=== PATIENT | female | born 1995 | race Caucasian/White ===

== ENCOUNTER 2017-12-04 19:31 | Emergency (ER) | payer OTHER ==
[2017-12-04] MEDS ORDERED: Lidocaine 2% Viscous Solution 15 ML Cup PO ONE (20:02)
--- NOTE | 2017-12-04 20:09 | EDM.PDOC ---
ED HPI GENERAL MEDICAL PROBLEM - General Chief Complaint: Respiratory Problem Stated Complaint: SORE THROAT Time Seen by Provider: 12/04/17 19:56 - History of Present Illness INITIAL COMMENTS - FREE TEXT/NARRATIVE: HISTORY AND PHYSICAL: History of present illness: The patient is a 22-year-old female who is healthy and presents with a four-day history of sore throat and difficulty swallowing but able to take by mouth as well as a dry cough and today she started having laryngitis. The patient has a history of seasonal allergies and takes Zyrtec on a regular basis and had a colectomy. She says that she feels achy all over her upper chest and her neck area but doesn't specifically have a headache or runny nose. She's had no discrete fevers vomiting or diarrhea and denies . Patient follows in our family practice clinic but has not connected with them for care. Again the patient says that it is painful to swallow and speak but she is able to do both. Review of systems: As per history of present illness and below otherwise all systems reviewed and negative. Past medical history: As per history of present illness and as reviewed below otherwise noncontributory. Surgical history: As per history of present illness and as reviewed below otherwise noncontributory. Social history: No reported history of drug or alcohol abuse. Family history: As per history of present illness and as reviewed below otherwise noncontributory. Physical exam: General: Well-developed well-nourished female was slightly worse voice or my evaluation but she is not muffled nor she breathless and vital signs are noted by me. HEENT: Atraumatic, normocephalic, pupils reactive, negative for conjunctival pallor or scleral icterus, mucous membranes moist, throat clear of exudates but there is some minimal posterior oropharyngeal erythema right greater than left, uvula is midline, there is no discrete cervical adenopathy or nuchal rigidity, neck supple, nontender, trachea midline. Lungs: Clear to auscultation, breath sounds equal bilaterally, chest nontender. No wheezing or stridor or work of breathing Heart: S1S2, regular, negative for clicks, rubs, or JVD. Abdomen: Soft, nondistended, nontender. Negative for masses or hepatosplenomegaly. NABS Pelvis: Deferred Genitourinary: Deferred. Rectal: Deferred. Extremities: Atraumatic, negative for cords or calf pain. Neurovascular unremarkable. Neuro: Awake, alert, oriented. Cranial nerves II through XII unremarkable. Cerebellum unremarkable. Motor and sensory unremarkable throughout. Exam nonfocal. Diagnostics: Rapid strep soft tissue neck Therapeutics: visc lidocaine She feels significantly improved men after the lidocaine. I will write her a prescription for this. She is aware of all testing results and need for follow- up Impression: Odontophagia, laryngitis, history of seasonal allergies Definitive disposition and diagnosis as appropriate pending reevaluation and review of above. throat Pain Score (Numeric/FACES): 8 - Related Data Allergies Allergy/AdvReac Type Severity Reaction Status Date / Time No Known Allergies Allergy Verified 12/04/17 19:56 Home Meds: Home Meds Venlafaxine [Effexor] 37.5 mg PO BEDTIME 11/20/13 [History] Norethindrone-Ethinyl Estrad [Nortrel] 1 tab PO DAILY 11/21/13 [History] Past Medical History HEENT History: Reports: None Cardiovascular History: Reports: None Respiratory History: Reports: None Gastrointestinal History: Reports: None Genitourinary History: Reports: None [employer] History: Reports: None Musculoskeletal History: Reports: None Neurological History: Reports: None Psychiatric History: Reports: None Endocrine/Metabolic History: Reports: None Hematologic History: Reports: None Immunologic History: Reports: None Oncologic (Cancer) History: Reports: None Dermatologic History: Reports: None - Infectious Disease History Infectious Disease History: Reports: None - Past Surgical History Head Surgeries/Procedures: Reports: None HEENT Surgical History: Reports: Tonsillectomy GI Surgical History: Reports: Appendectomy Musculoskeletal Surgical History: Reports: Other (See Below) Other Musculoskeletal Surgeries/Procedures:: knee surgery Social & Family History - Family History Family Medical History: Noncontributory - Tobacco Use Smoking Status *Q: Never Smoker - Caffeine Use Caffeine Use: Reports: Coffee - Recreational Drug Use Recreational Drug Use: No ED ROS GENERAL - Review of Systems Review Of Systems: ROS reveals no pertinent complaints other than HPI. ED EXAM, GENERAL - Physical Exam Exam: See Below (see dictation) Course - Vital Signs Last Recorded V/S: Last Vital Signs Temp 36.8 C 12/04/17 19:56 Pulse 74 12/04/17 19:56 Resp 18 12/04/17 19:56 BP 125/79 12/04/17 19:56 Pulse Ox 98 12/04/17 19:56 - Orders/Labs/Meds Orders: Active Orders 24 hr Category Date Time Status Neck Soft Tissue [CR] Stat Exams 12/04/17 20:02 Taken CULTURE STREP A CONFIRMATION [RM] Stat Lab 12/04/17 20:05 Results STREP SCRN A RAPID W CULT CONF [RM] Stat Lab 12/04/17 20:05 Ordered Meds: Medications Discontinued Medications Generic Name Dose Route Start Last Admin Trade Name David PRN Reason Stop Dose Admin Lidocaine HCl 15 ml 12/04/17 20:02 12/04/17 20:55 Xylocaine 2% Viscous PO 12/04/17 20:03 15 ml ONETIME ONE Administration Departure - Departure Time of Disposition: 21:03 Disposition: Home, Self-Care 01 Condition: Good Clinical Impression: Pain on swallowing, Laryngitis - Discharge Information Referrals: Ashkan Magana MD [Primary Care Provider] - Forms: ED Department Discharge Additional Instructions: The following information is given to patients seen in the emergency department who are being discharged to home. This information is to outline your options for follow-up care. We provide all patients seen in our emergency department with a follow-up referral. The need for follow-up, as well as the timing and circumstances, are variable depending upon the specifics of your emergency department visit. If you don't have a primary care physician on staff, we will provide you with a referral. We always advise you to contact your personal physician following an emergency department visit to inform them of the circumstance of the visit and for follow-up with them and/or the need for any referrals to a consulting specialist. The emergency department will also refer you to a specialist when appropriate. This referral assures that you have the opportunity for followup care with a specialist. All of these measure are taken in an effort to provide you with optimal care, which includes your followup. Under all circumstances we always encourage you to contact your private physician who remains a resource for coordinating your care. When calling for followup care, please make the office aware that this follow-up is from your recent emergency room visit. If for any reason you are refused follow-up, please contact the [facility] emergency department at and ask to speak to the emergency department charge nurse. [facility] Primary care- [place] [address] Push hydration and use your prescription for Viscous Lidocaine as you need. Please continue with her allergy meds and add [id number] allergy meds as needed. Please follow-up with your provider in the clinic and return to ER as needed and as discussed - My Orders Last 24 Hours: My Active Orders 12/04/17 20:02 Neck Soft Tissue [CR] Stat 12/04/17 20:05 CULTURE STREP A CONFIRMATION [RM] Stat STREP SCRN A RAPID W CULT CONF [RM] Stat - Assessment/Plan Last 24 Hours: My Active Orders 12/04/17 20:02 Neck Soft Tissue [CR] Stat 12/04/17 20:05 CULTURE STREP A CONFIRMATION [RM] Stat STREP SCRN A RAPID W CULT CONF [RM] Stat
--- NOTE | 2017-12-06 19:16 | CR ---
EXAM DATE: 12/04/17 PATIENT'S AGE: 22 Patient: JESUS ALBERTO ROBISON Facility: [place], [place] Site . Site : 1994 Study: XRay ST Neck [id number] 8:26:01 PM Ordering Physician: Camron Barroso Final Report: INDICATION: Cough, Sore Throat, Neck Pain for 4 Days TECHNIQUE: Neck soft tissue radiograph 2 views COMPARISON: None FINDINGS: Soft tissue: The retropharyngeal soft tissues are unremarkable. The epiglottis and airway are normal in appearance. No radiopaque foreign bodies are seen. 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 Bones: No acute fractures or aggressive bone lesions are identified. Alignment is normal. Discs: The disc spaces are unremarkable in appearance. The facet joints are unremarkable. IMPRESSION: 1. 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 Dictated by Gustavo Taylor MD @ 12/04/2017 8:29:16 PM Dictated by: Gustavo Taylor MD @ 12/04/2017 20:29:20 (Electronic Signature) MTDD
== END 2017-12-04 21:12 | disposition home or self-care (01) ==
LOC: MW.ED 19:31
DX: J04.0 Acute laryngitis (principal); Z79.899 Other long term (current) drug therapy
CPT/HCPCS: 70360; 87081; 87880; 99283; A9270

== ENCOUNTER 2020-12-24 21:21 | Day surgery (SDC) | payer OTHER ==
--- NOTE | 2020-12-24 21:42 | PCM.EKG ---
#1 Interpretation EKG Date: 12/24/20 Time: 21:41 EKG Interpretation Comments: Sinus rhythm rate of 68 normal axis and intervals no acute ischemia
[2020-12-24] MEDS ORDERED: Sodium Chloride 0.9% 10 ML Syringe FLUSH PRN (21:50)
[2020-12-24] MEDS ORDERED: Sodium Chloride 0.9% 2.5 ML Syringe FLUSH PRN (21:50)
[2020-12-24] MEDS ORDERED: Sodium Chloride 0.9% 1,000 ML IV ONE (21:52)
--- NOTE | 2020-12-24 21:58 | EDM.PDOC ---
ED HPI GENERAL MEDICAL PROBLEM <Pro Leon - Last Filed: 12/25/20 01:55> - General Source of Information: Reports: Patient, Family () History Limitations: Reports: No Limitations Abdomen Pain Score (Numeric/FACES): 4 <Gale Martinez - Last Filed: 12/25/20 21:54> - General Chief Complaint: Syncope Stated Complaint: PASSED OUT Time Seen by Provider: 12/24/20 21:23 - History of Present Illness INITIAL COMMENTS - FREE TEXT/NARRATIVE: HISTORY AND PHYSICAL: History of present illness: The patient is a 25-year-old female that is 5 and half weeks who complains to the emergency department after several syncopal episodes. The patient states that she has been constipated and her SERVICE TECHNICIAN has been having her take Metamucil on a daily basis. The patient stated that earlier this evening she started having sharp pain in her right lower quad and in her bilateral lower back. The patient states the pain was so severe that she was nauseated. The patient states that she laid down for about 2-1/2 hours but upon arising felt like she was going to pass out. Patient states as she was walking she did pass out and was able to get herself back up into the bathroom. At 1 point she stated she passed out and was incontinent of stool and urine. She states her was outside and did not hear her yell. She states her nausea is much better but she still is very sore in the right lower quad. Her reports that when he saw her she was very diaphoretic and "out of it" Patient denies any fever, chills, headache, change in vision. Denies any chest pain, shortness of breath or cough. Denies any diarrhea or dysuria. Has not noted any blood in urine or stool. Patient has been eating and drinking appropriately. Review of systems: As per history of present illness and below otherwise all systems reviewed and negative. Past medical history: As per history of present illness and as reviewed below otherwise noncontributory. Surgical history: As per history of present illness and as reviewed below otherwise noncontributory. Social history: See social history for further information Family history: As per history of present illness and as reviewed below otherwise noncontributory. Physical exam: General: Well developed and well nourished. Alert and orientated x 3. Nontoxic in appearance and in no acute distress. Vital signs are stable and have been reviewed by me. Nursing notes were reviewed. HEENT: Atraumatic, normocephalic, pupils equal and reactive bilaterally, negative for conjunctival pallor or scleral icterus, mucous membranes moist, TMs normal bilaterally, throat clear, neck supple, nontender, trachea midline. No drooling or trismus noted. No meningeal signs. No hot potato voice noted. Lungs: Clear to auscultation bilaterally. No wheezes, rales, or rhonchi. Chest nontender. Normal work of breathing, no accessory muscles used. Heart: S1S2, regular rate and rhythm without overt murmur, gallops, or rubs. No JVD. No peripheral edema Abdomen: Soft, nondistended. RLQ tender. Normoactive bowel sounds. Negative for masses or costovertebral tenderness. Back: Lower double back operator. Skin: Intact, warm, dry. No lesions or rashes noted. Hematologic: No petechiae or purpra. Mucosa appropriate color and normal nail bed color and refill. Extremities: Atraumatic, moves all extremities per self without difficulty or deficits, negative for cords or calf pain. Neurovascular unremarkable. Neuro: Awake, alert, oriented. Cranial nerves II through XII unremarkable. Cerebellum unremarkable. Motor and sensory unremarkable throughout. Exam nonfocal. Psychiatric: Mood and affect are appropriate. Normal thought process. Answering questions appropriately. Notes: *This patient was seen and evaluated during the 2019 SARS-CoV-2 novel coronavirus pandemic period. Community viral transmission is ongoing at time of this encounter and the emergency department is operating under pandemic response procedures. As stated above the patient is 7-1/2 weeks presenting to the emergency room after several syncopal episodes. The patient's neuro status was intact. After examination the patient is very tender in the right lower quad. The patient is agreeable with the plan of lab work, urinalysis, EKG, ultrasound, and IV fluids. Report given to Dr. Barahona, who will take over care of the patient. Diagnostics: CBC, CMP, hCG quantitative, EKG, UA, ultrasound Therapeutics: IV fluids Definitive disposition and diagnosis as appropriate pending reevaluation and review of above. (Gale Martinez) - Related Data Allergies Allergy/AdvReac Type Severity Reaction Status Date / Time No Known Allergies Allergy Verified 12/25/20 01:31 Home Meds: Home Meds Docusate Sodium [Colace] 100 mg PO BID PRN #60 cap 12/25/20 [Rx] Ibuprofen 800 mg PO Q8H PRN #40 tablet 12/25/20 [Rx] No122/Iron/Folic Acid [ Multi Tablet] 1 tab PO DAILY 12/25/20 [History] Progesterone, Micronized [Progesterone] 200 mg PO DAILY 12/25/20 [History] Sertraline [Zoloft] 50 mg PO DAILY 12/25/20 [History] oxyCODONE HCl/Acetaminophen [Percocet 5-325 mg Tablet] 1 each PO Q4HR PRN #15 tablet 12/25/20 [Rx] Past Medical History HEENT History: Reports: None Cardiovascular History: Reports: None Respiratory History: Reports: None Gastrointestinal History: Reports: None Genitourinary History: Reports: None SERVICE TECHNICIAN History: Reports: None Musculoskeletal History: Reports: None Neurological History: Reports: None Psychiatric History: Reports: None Endocrine/Metabolic History: Reports: None Hematologic History: Reports: None Immunologic History: Reports: None Oncologic (Cancer) History: Reports: None Dermatologic History: Reports: None - Infectious Disease History Infectious Disease History: Reports: None - Past Surgical History Head Surgeries/Procedures: Reports: None HEENT Surgical History: Reports: Tonsillectomy GI Surgical History: Reports: Appendectomy Musculoskeletal Surgical History: Reports: Other (See Below) Other Musculoskeletal Surgeries/Procedures:: knee surgery <Gale Martinez - Last Filed: 12/25/20 21:54> Social & Family History - Family History Family Medical History: No Pertinent Family History - Caffeine Use Caffeine Use: Reports: Coffee <Gale Martinez - Last Filed: 12/25/20 21:54> ED ROS GENERAL - Review of Systems Review Of Systems: See Below <Pro Leon - Last Filed: 12/25/20 01:55> - Review of Systems Review Of Systems: Comprehensive ROS is negative, except as noted in HPI. <Gale Martinez - Last Filed: 12/25/20 21:54> - Physical Exam Exam: See Below <Pro Leon - Last Filed: 12/25/20 01:55> - Physical Exam Exam: See Below (See dictation) <Gale Martinez - Last Filed: 12/25/20 21:54> Course - Vital Signs Last Recorded V/S: Last Vital Signs Temp 97.0 F 12/25/20 08:00 Pulse 64 12/25/20 08:00 Resp 16 12/25/20 08:00 BP 108/54 L 12/25/20 08:00 Pulse Ox 96 12/25/20 08:00 - Orders/Labs/Meds Orders: Active Orders 24 hr Category Date Time Status Patient Status [ADT] Routine ADT 12/25/20 01:27 Active Patient Status [ADT] Routine ADT 12/25/20 03:53 Active Peripheral IV Discontinue [OM.PC] Routine Ot 12/25/20 03:59 Ordered Peripheral IV Insertion Adult [OM.PC] Urgent Ot 12/25/20 01:27 Ordered Saline Lock Insert [OM.PC] Stat Ot 12/24/20 21:50 Ordered Sequential Compression Device [OM.PC] Per Unit Routine Ot 12/25/20 01:27 Ordered Resuscitation Status Routine Resus Stat 12/25/20 03:52 Ordered Labs: Laboratory Tests 12/24/20 12/24/20 12/24/20 Range/Units 21:37 21:37 21:37 WBC 13.18 H (4.0-11.0) K/uL RBC 3.95 L (4.30-5.90) M/uL Hgb 12.1 (12.0-16.0) g/dL Hct 35.4 L (36.0-46.0) % MCV 89.6 (80.0-98.0) fL MCH 30.6 (27.0-32.0) pg MCHC 34.2 (31.0-37.0) g/dL RDW Std Deviation 39.5 (28.0-62.0) fl RDW Coeff of Anna 12 (11.0-15.0) % Plt Count 258 (150-400) K/uL MPV 9.20 (7.40-12.00) fL Neut % (Auto) 80.5 H (48.0-80.0) % Lymph % (Auto) 13.5 L (16.0-40.0) % [place] % (Auto) 3.2 (0.0-15.0) % Eos % (Auto) 2.6 (0.0-7.0) % Baso % (Auto) 0.2 (0.0-1.5) % Neut # (Auto) 10.6 H (1.4-5.7) K/uL Lymph # (Auto) 1.8 (0.6-2.4) K/uL [place] # (Auto) 0.4 (0.0-0.8) K/uL Eos # (Auto) 0.3 (0.0-0.7) K/uL Baso # (Auto) 0.0 (0.0-0.1) K/uL Nucleated RBC % 0.0 /100WBC Nucleated RBCs # 0 K/uL Sodium 136 (136-145) mmol/L Potassium 3.5 (3.5-5.1) mmol/L Chloride 101 (98-107) mmol/L Carbon Dioxide 25.4 (21.0-32.0) mmol/L BUN 13 (7.0-18.0) mg/dL Creatinine 0.8 (0.6-1.0) mg/dL Est Cr Clr Drug Dosing TNP Estimated GFR (MDRD) > 60.0 ml/min Glucose 140 H (74-106) mg/dL Calcium 8.4 L (8.5-10.1) mg/dL Total Bilirubin 0.4 (0.2-1.0) mg/dL AST 16 (15-37) IU/L ALT 25 (14-63) IU/L Alkaline Phosphatase 58 (46-116) U/L Total Protein 6.7 (6.4-8.2) g/dL Albumin 3.0 L (3.4-5.0) g/dL Globulin 3.7 (2.6-4.0) g/dL Albumin/Globulin Ratio 0.8 L (0.9-1.6) HCG, Quant 14201.0 mIU/mL Urine Color Urine Appearance Urine pH (5.0-8.0) Ur Specific [place] (1.001-1.035) Urine Protein (NEGATIVE) mg/dL Urine Glucose (UA) (NEGATIVE) mg/dL Urine Ketones (NEGATIVE) mg/dL Urine Occult Blood (NEGATIVE) Urine Nitrite (NEGATIVE) Urine Bilirubin (NEGATIVE) Urine Urobilinogen (<2.0) EU/dL Ur Leukocyte Esterase (NEGATIVE) SARS-CoV-2 RNA (MIGUEL) (NEGATIVE) Blood Type Antibody Screen Screen RhIG Candidate? Rhogam Indicated 12/25/20 12/25/20 12/25/20 Range/Units 00:11 01:00 01:00 WBC (4.0-11.0) K/uL RBC (4.30-5.90) M/uL Hgb (12.0-16.0) g/dL Hct (36.0-46.0) % MCV (80.0-98.0) fL MCH (27.0-32.0) pg MCHC (31.0-37.0) g/dL RDW Std Deviation (28.0-62.0) fl RDW Coeff of Anna (11.0-15.0) % Plt Count (150-400) K/uL MPV (7.40-12.00) fL Neut % (Auto) (48.0-80.0) % Lymph % (Auto) (16.0-40.0) % [place] % (Auto) (0.0-15.0) % Eos % (Auto) (0.0-7.0) % Baso % (Auto) (0.0-1.5) % Neut # (Auto) (1.4-5.7) K/uL Lymph # (Auto) (0.6-2.4) K/uL [place] # (Auto) (0.0-0.8) K/uL Eos # (Auto) (0.0-0.7) K/uL Baso # (Auto) (0.0-0.1) K/uL Nucleated RBC % /100WBC Nucleated RBCs # K/uL Sodium (136-145) mmol/L Potassium (3.5-5.1) mmol/L Chloride (98-107) mmol/L Carbon Dioxide (21.0-32.0) mmol/L BUN (7.0-18.0) mg/dL Creatinine (0.6-1.0) mg/dL Est Cr Clr Drug Dosing Estimated GFR (MDRD) ml/min Glucose (74-106) mg/dL Calcium (8.5-10.1) mg/dL Total Bilirubin (0.2-1.0) mg/dL AST (15-37) IU/L ALT (14-63) IU/L Alkaline Phosphatase (46-116) U/L Total Protein (6.4-8.2) g/dL Albumin (3.4-5.0) g/dL Globulin (2.6-4.0) g/dL Albumin/Globulin Ratio (0.9-1.6) HCG, Quant mIU/mL Urine Color YELLOW Urine Appearance CLEAR Urine pH 6.0 (5.0-8.0) Ur Specific [place] <= 1.005 (1.001-1.035) Urine Protein NEGATIVE (NEGATIVE) mg/dL Urine Glucose (UA) NEGATIVE (NEGATIVE) mg/dL Urine Ketones NEGATIVE (NEGATIVE) mg/dL Urine Occult Blood NEGATIVE (NEGATIVE) Urine Nitrite NEGATIVE (NEGATIVE) Urine Bilirubin NEGATIVE (NEGATIVE) Urine Urobilinogen 0.2 (<2.0) EU/dL Ur Leukocyte Esterase NEGATIVE (NEGATIVE) SARS-CoV-2 RNA (MIGUEL) NEGATIVE (NEGATIVE) Blood Type A NEGATIVE Antibody Screen NEGATIVE Screen RhIG Candidate? Rhogam Indicated 12/25/20 Range/Units 04:11 WBC (4.0-11.0) K/uL RBC (4.30-5.90) M/uL Hgb (12.0-16.0) g/dL Hct (36.0-46.0) % MCV (80.0-98.0) fL MCH (27.0-32.0) pg MCHC (31.0-37.0) g/dL RDW Std Deviation (28.0-62.0) fl RDW Coeff of Anna (11.0-15.0) % Plt Count (150-400) K/uL MPV (7.40-12.00) fL Neut % (Auto) (48.0-80.0) % Lymph % (Auto) (16.0-40.0) % [place] % (Auto) (0.0-15.0) % Eos % (Auto) (0.0-7.0) % Baso % (Auto) (0.0-1.5) % Neut # (Auto) (1.4-5.7) K/uL Lymph # (Auto) (0.6-2.4) K/uL [place] # (Auto) (0.0-0.8) K/uL Eos # (Auto) (0.0-0.7) K/uL Baso # (Auto) (0.0-0.1) K/uL Nucleated RBC % /100WBC Nucleated RBCs # K/uL Sodium (136-145) mmol/L Potassium (3.5-5.1) mmol/L Chloride (98-107) mmol/L Carbon Dioxide (21.0-32.0) mmol/L BUN (7.0-18.0) mg/dL Creatinine (0.6-1.0) mg/dL Est Cr Clr Drug Dosing Estimated GFR (MDRD) ml/min Glucose (74-106) mg/dL Calcium (8.5-10.1) mg/dL Total Bilirubin (0.2-1.0) mg/dL AST (15-37) IU/L ALT (14-63) IU/L Alkaline Phosphatase (46-116) U/L Total Protein (6.4-8.2) g/dL Albumin (3.4-5.0) g/dL Globulin (2.6-4.0) g/dL Albumin/Globulin Ratio (0.9-1.6) HCG, Quant mIU/mL Urine Color Urine Appearance Urine pH (5.0-8.0) Ur Specific [place] (1.001-1.035) Urine Protein (NEGATIVE) mg/dL Urine Glucose (UA) (NEGATIVE) mg/dL Urine Ketones (NEGATIVE) mg/dL Urine Occult Blood (NEGATIVE) Urine Nitrite (NEGATIVE) Urine Bilirubin (NEGATIVE) Urine Urobilinogen (<2.0) EU/dL Ur Leukocyte Esterase (NEGATIVE) SARS-CoV-2 RNA (MIGUEL) (NEGATIVE) Blood Type Antibody Screen Screen WHOLESALE AND RETAIL MERCHANT RhIG Candidate? YES Rhogam Indicated YES, BABY RH UNKNOWN H Meds: Medications Discontinued Medications Generic Name Dose Route Start Last Admin Trade Name Freq PRN Reason Stop Dose Admin Acetaminophen 1,000 mg 12/25/20 08:40 12/25/20 08:58 Acetaminophen 500 Mg Tab PO 12/25/20 08:41 1,000 mg ONETIME ONE Administration Acetaminophen Confirm 12/25/20 08:46 12/25/20 08:59 Acetaminophen 500 Mg Tab Administered 12/25/20 08:47 Not Given Dose 1,000 mg .ROUTE .STK-MED ONE Bupivacaine HCl Confirm 12/25/20 04:20 Bupivacaine 0.25% 10 Ml Sdv Administered 12/25/20 04:21 Dose 10 ml .ROUTE .STK-MED ONE Desflurane Confirm 12/25/20 03:51 Desflurane 240 Ml Bottle Administered 12/25/20 03:52 Dose 720 ml .ROUTE .STK-MED ONE Dexamethasone Confirm 12/25/20 02:13 Dexamethasone 4 Mg/Ml 5 Ml Mdv Administered 12/25/20 02:14 Dose 20 mg .ROUTE .STK-MED ONE Fentanyl Confirm 12/25/20 02:11 Fentanyl 100 Mcg/2 Ml Sdv Administered 12/25/20 02:12 Dose 100 mcg .ROUTE .STK-MED ONE Glycopyrrolate Confirm 12/25/20 02:13 Glycopyrrolate 0.2 Mg/Ml Sdv Administered 12/25/20 02:14 Dose 0.2 mg .ROUTE .STK-MED ONE Sodium Chloride 1,000 mls @ 999 mls/hr 12/24/20 21:52 12/24/20 22:15 Normal Saline IV 12/24/20 22:52 999 mls/hr .BOLUS ONE Administration Acetaminophen Confirm 12/25/20 02:13 Ofirmev 1000 Mg/100 Ml Administered 12/25/20 02:14 Dose 100 mls @ as directed .ROUTE .STK-MED ONE Ketorolac Tromethamine 15 mg 12/25/20 03:59 12/25/20 05:09 Ketorolac 15 Mg/Ml Sdv IVPUSH 12/25/20 04:00 Not Given ONETIME ONE Lidocaine HCl Confirm 12/25/20 03:39 Lidocaine 1% 5 Ml Sdv Administered 12/25/20 03:40 Dose 5 ml .ROUTE .STK-MED ONE Midazolam HCl Confirm 12/25/20 02:11 Midazolam 1 Mg/Ml 2 Ml Sdv Administered 12/25/20 02:12 Dose 2 mg .ROUTE .STK-MED ONE Morphine Sulfate Confirm 12/25/20 03:00 Morphine 10 Mg/Ml Syringe Administered 12/25/20 03:01 Dose 10 mg .ROUTE .STK-MED ONE Ondansetron HCl Confirm 12/25/20 02:11 Ondansetron 4 Mg/2 Ml Sdv Administered 12/25/20 02:12 Dose 4 mg .ROUTE .STK-MED ONE Oxycodone/Acetaminophen 2 tab 12/25/20 04:21 Acetaminophen/Oxycodone 325-5 Mg Tab PO Q4H PRN Pain (severe 7-10) Propofol Confirm 12/25/20 02:11 Propofol 200 Mg/20 Ml Sdv Administered 12/25/20 02:12 Dose 400 mg .ROUTE .STK-MED ONE Propofol Confirm 12/25/20 02:55 Propofol 200 Mg/20 Ml Sdv Administered 12/25/20 02:56 Dose 200 mg .ROUTE .STK-MED ONE Rocuronium [place] Confirm 12/25/20 02:13 Rocuronium [place] 50 Mg/5 Ml Syringe Administered 12/25/20 02:14 Dose 50 mg .ROUTE .STK-MED ONE Sodium Chloride 10 ml 12/24/20 21:50 Sodium Chloride 0.9% 10 Ml Syringe FLUSH ASDIRECTED PRN Keep Vein Open Sodium Chloride 2.5 ml 12/24/20 21:50 Sodium Chloride 0.9% 2.5 Ml Syringe FLUSH ASDIRECTED PRN Keep Vein Open Sodium Chloride 10 ml 12/25/20 01:27 Sodium Chloride 0.9% 10 Ml Syringe FLUSH ASDIRECTED PRN Keep Vein Open Sodium Chloride 2.5 ml 12/25/20 01:27 Sodium Chloride 0.9% 2.5 Ml Syringe FLUSH ASDIRECTED PRN Keep Vein Open Sodium Chloride 10 ml 12/25/20 01:27 Sodium Chloride 0.9% 10 Ml Sdv IV ASDIRECTED PRN IV Use Sugammadex Sodium Confirm 12/25/20 03:32 Sugammadex Sodium 200 Mg/2 Ml Vial Administered 12/25/20 03:33 Dose 200 mg .ROUTE .STK-MED ONE Departure - Departure Time of Disposition: 01:55 Condition: Good <Pro Leon - Last Filed: 12/25/20 01:55> <Gale Martinez - Last Filed: 12/25/20 21:54> - Departure Disposition: Refer to Observation Clinical Impression: Ruptured ectopic <Pro Leon - Last Filed: 12/25/20 01:55> - My Orders Last 24 Hours: My Active Orders 12/24/20 21:50 Saline Lock Insert [OM.PC] Stat - Assessment/Plan Last 24 Hours: My Active Orders 12/24/20 21:50 Saline Lock Insert [OM.PC] Stat Assessment:: Pt received in signout from the prior provider pending US result. Pt discussed with radiology and US demonstrates a right adnexal mass with free fluid in the pelvis concerning for a ruptured ectopic . Pt discussed with Dr. Wu immediately after I spoke to radiology. She will come assess the patient. COVID swab ordered, 2nd IV to be established and type and screen ordered. 0155: Pt has been seen by Dr. Wu in the ED. Pt remains HDS. Will be taken to the OR. (Pro Leon)
[2020-12-24 22:08] LABS: BLOOD UREA NITROGEN,BUN 13 mg/dL (7.0-18.0); CARBON DIOXIDE,CO2 25.4 mmol/L (21.0-32.0); CHLORIDE,CL 101 mmol/L (98-107); GLUCOSE RANDOM 140 mg/dL (74-106); POTASSIUM,K 3.5 mmol/L (3.5-5.1); SODIUM,NA 136 mmol/L (136-145)
--- NOTE | 2020-12-25 00:51 | US ---
For Patients: As a result of the Century Cures Act, medical imaging exams and procedure reports are released immediately into your electronic medical record. You may view this report before your referring provider. If you have questions, please contact your health care provider. Indication: Right lower quadrant pain, LMP 11/03, beta HCG 42174 Technique: Multiple grayscale and Doppler sonographic images of the pelvis. Scanning was performed transvaginally. Comparison: None Findings/Impression: 1. There is a 5.8 x 4.9 x 8.4 cm heterogeneous right adnexal mass. The right ovary is inseparable from the adjacent mass. There is moderate pelvic free fluid. Findings are highly concerning for ruptured ectopic . 2. The left ovary measures 2.4 x 3.1 x 3.6 cm and contains a 1.6 cm thick-walled cystic structure with peripheral vascularity suggestive of a corpus luteum. 3. The uterus measures 9.9 x 4.2 x 5.1 cm. There is thickening and heterogeneity of the endometrial stripe, measuring up to 1.7 cm in thickness. No intrauterine gestational sac is appreciated. Dictated by Eveline Verdugo MD @ 12/25/2020 12:49:[address] Eveline Verdugo @ Dec 25 2020 12:49AM
[2020-12-25] MEDS ORDERED: Sodium Chloride 0.9% 10 ML Syringe FLUSH PRN (01:27)
[2020-12-25] MEDS ORDERED: Sodium Chloride 0.9% 10 ML SDV IV PRN (01:27)
[2020-12-25] MEDS ORDERED: Sodium Chloride 0.9% 2.5 ML Syringe FLUSH PRN (01:27)
--- NOTE | 2020-12-25 02:05 | PCM.PREANE ---
Preanesthetic Assessment - Procedure Proposed Procedure: Laparoscopy-ectopic - Anesthesia/Transfusion/Family Hx Anesthesia History: Prior Anesthesia Without Reaction Other Type of Anesthesia Reaction Comment: Denies any known problem with anesthesia in the past, reports"fito white Family History of Anesthesia Reaction: No Transfusion History: No Prior Transfusion(s) Intubation History: Unknown - Review of Systems General: No Symptoms Pulmonary: No Symptoms Cardiovascular: Other (Passed out at home.) Gastrointestinal: Other (Has IBS sysptoms at times.) Neurological: No Symptoms Other: Reports: Anxiety - Physical Assessment NPO Status Date: 12/24/20 NPO Status Time: 18:00 Vital Signs: Last Vital Signs Temp 36.1 C 12/24/20 23:56 Pulse 75 12/25/20 01:53 Resp 20 12/25/20 01:53 BP 108/65 12/25/20 01:53 Pulse Ox 100 12/25/20 01:53 ASA Class: 2E Mental Status: Alert & Oriented x3 Airway Class: Mallampati = 2 Dentition: Reports: Normal Dentition Thyro-Mental Finger Breadths: 3 Mouth Opening Finger Breadths: 3 ROM/Head Extension: Full Lungs: Clear to Auscultation Cardiovascular: Regular Rate - Lab Values: Laboratory Last Values WBC 13.18 K/uL (4.0-11.0) H 12/24/20 21:37 RBC 3.95 M/uL (4.30-5.90) L 12/24/20 21:37 Hgb 12.1 g/dL (12.0-16.0) 12/24/20 21:37 Hct 35.4 % (36.0-46.0) L 12/24/20 21:37 MCV 89.6 fL (80.0-98.0) 12/24/20 21:37 MCH 30.6 pg (27.0-32.0) 12/24/20 21:37 MCHC 34.2 g/dL (31.0-37.0) 12/24/20 21:37 RDW Std Deviation 39.5 fl (28.0-62.0) 12/24/20 21:37 RDW Coeff of Anna 12 % (11.0-15.0) 12/24/20 21:37 Plt Count 258 K/uL (150-400) 12/24/20 21:37 MPV 9.20 fL (7.40-12.00) 12/24/20 21:37 Neut % (Auto) 80.5 % (48.0-80.0) H 12/24/20 21:37 Lymph % (Auto) 13.5 % (16.0-40.0) L 12/24/20 21:37 [place] % (Auto) 3.2 % (0.0-15.0) 12/24/20 21:37 Eos % (Auto) 2.6 % (0.0-7.0) 12/24/20 21:37 Baso % (Auto) 0.2 % (0.0-1.5) 12/24/20 21:37 Neut # (Auto) 10.6 K/uL (1.4-5.7) H 12/24/20 21:37 Lymph # (Auto) 1.8 K/uL (0.6-2.4) 12/24/20 21:37 [place]ima # (Auto) 0.4 K/uL (0.0-0.8) 12/24/20 21:37 Eos # (Auto) 0.3 K/uL (0.0-0.7) 12/24/20 21:37 Baso # (Auto) 0.0 K/uL (0.0-0.1) 12/24/20 21:37 Nucleated RBC % 0.0 /100WBC 12/24/20 21:37 Nucleated RBCs # 0 K/uL 12/24/20 21:37 Sodium 136 mmol/L (136-145) 12/24/20 21:37 Potassium 3.5 mmol/L (3.5-5.1) 12/24/20 21:37 Chloride 101 mmol/L (98-107) 12/24/20 21:37 Carbon Dioxide 25.4 mmol/L (21.0-32.0) 12/24/20 21:37 BUN 13 mg/dL (7.0-18.0) 12/24/20 21:37 Creatinine 0.8 mg/dL (0.6-1.0) 12/24/20 21:37 Est Cr Clr Drug Dosing TNP 12/24/20 21:37 Estimated GFR (MDRD) > 60.0 ml/min 12/24/20 21:37 Glucose 140 mg/dL (74-106) H 12/24/20 21:37 Calcium 8.4 mg/dL (8.5-10.1) L 12/24/20 21:37 Total Bilirubin 0.4 mg/dL (0.2-1.0) 12/24/20 21:37 AST 16 IU/L (15-37) 12/24/20 21:37 ALT 25 IU/L (14-63) 12/24/20 21:37 Alkaline Phosphatase 58 U/L (46-116) 12/24/20 21:37 Total Protein 6.7 g/dL (6.4-8.2) 12/24/20 21:37 Albumin 3.0 g/dL (3.4-5.0) L 12/24/20 21:37 Globulin 3.7 g/dL (2.6-4.0) 12/24/20 21:37 Albumin/Globulin Ratio 0.8 (0.9-1.6) L 12/24/20 21:37 HCG, Quant 17611.0 mIU/mL 12/24/20 21:37 Urine Color YELLOW 12/25/20 00:11 Urine Appearance CLEAR 12/25/20 00:11 Urine pH 6.0 (5.0-8.0) 12/25/20 00:11 Ur Specific Sperry <= 1.005 (1.001-1.035) 12/25/20 00:11 Urine Protein NEGATIVE mg/dL (NEGATIVE) 12/25/20 00:11 Urine Glucose (UA) NEGATIVE mg/dL (NEGATIVE) 12/25/20 00:11 Urine Ketones NEGATIVE mg/dL (NEGATIVE) 12/25/20 00:11 Urine Occult Blood NEGATIVE (NEGATIVE) 12/25/20 00:11 Urine Nitrite NEGATIVE (NEGATIVE) 12/25/20 00:11 Urine Bilirubin NEGATIVE (NEGATIVE) 12/25/20 00:11 Urine Urobilinogen 0.2 EU/dL (<2.0) 12/25/20 00:11 Ur Leukocyte Esterase NEGATIVE (NEGATIVE) 12/25/20 00:11 SARS-CoV-2 RNA (MIGUEL) NEGATIVE (NEGATIVE) 12/25/20 01:00 Blood Type A NEGATIVE 12/25/20 01:00 Antibody Screen NEGATIVE 12/25/20 01:00 - Allergies Allergies/Adverse Reactions: Allergies Allergy/AdvReac Type Severity Reaction Status Date / Time No Known Allergies Allergy Verified 12/25/20 01:31 - Blood Blood Available: No Product(s) Available: None - Anesthesia Plan Pre-Op Medication Ordered: None - Acknowledgements Anesthesia Type Planned: General Anesthesia Pt an Appropriate Candidate for the Planned Anesthesia: Yes Alternatives and Risks of Anesthesia Discussed w Pt/Guardian: Yes Pt/Guardian Understands and Agrees with Anesthesia Plan: Yes Additional Comments: Discussed. Permit signed. ? Answered. Acceptable candidate. PreAnesthesia Questionnaire HEENT History: Reports: None Cardiovascular History: Reports: None Respiratory History: Reports: None Gastrointestinal History: Reports: None Genitourinary History: Reports: None SPACE OPERATIONS History: Reports: None Musculoskeletal History: Reports: None Neurological History: Reports: None Psychiatric History: Reports: None Endocrine/Metabolic History: Reports: None Hematologic History: Reports: None Immunologic History: Reports: None Oncologic (Cancer) History: Reports: None Dermatologic History: Reports: None - Infectious Disease History Infectious Disease History: Reports: None - Past Surgical History Head Surgeries/Procedures: Reports: None HEENT Surgical History: Reports: Tonsillectomy GI Surgical History: Reports: Appendectomy Musculoskeletal Surgical History: Reports: Other (See Below) Other Musculoskeletal Surgeries/Procedures:: knee surgery - SUBSTANCE USE Tobacco Use Status *Q: Never Tobacco User Recreational Drug Use History: No - HOME MEDS Home Medications: Home Meds No122/Iron/Folic Acid [ Multi Tablet] 1 tab PO DAILY 12/25/20 [History] Progesterone, Micronized [Progesterone] 200 mg PO DAILY 12/25/20 [History] Sertraline [Zoloft] 50 mg PO DAILY 12/25/20 [History] - CURRENT (IN HOUSE) MEDS Current Meds: Current Medications Sodium Chloride (Sodium Chloride 0.9% 10 Ml Syringe) 10 ml FLUSH ASDIRECTED PRN PRN Reason: Keep Vein Open Sodium Chloride (Sodium Chloride 0.9% 2.5 Ml Syringe) 2.5 ml FLUSH ASDIRECTED PRN PRN Reason: Keep Vein Open Sodium Chloride (Sodium Chloride 0.9% 10 Ml Sdv) 10 ml IV ASDIRECTED PRN PRN Reason: IV Use Discontinued Medications Sodium Chloride (Normal Saline) 1,000 mls @ 999 mls/hr IV .BOLUS ONE Stop: 12/24/20 22:52 Last Admin: 12/24/20 22:15 Dose: 999 mls/hr Documented by: Sodium Chloride (Sodium Chloride 0.9% 10 Ml Syringe) 10 ml FLUSH ASDIRECTED PRN PRN Reason: Keep Vein Open Sodium Chloride (Sodium Chloride 0.9% 2.5 Ml Syringe) 2.5 ml FLUSH ASDIRECTED PRN PRN Reason: Keep Vein Open
[2020-12-25] MEDS ORDERED: fentaNYL 100 MCG/2 ML SDV ONE (02:11)
[2020-12-25] MEDS ORDERED: Propofol 200 MG/20 ML SDV ONE ×2 (02:11→02:55)
[2020-12-25] MEDS ORDERED: Ondansetron 4 MG/2 ML SDV ONE (02:11)
[2020-12-25] MEDS ORDERED: Midazolam 1 MG/ML 2 ML SDV ONE (02:11)
[2020-12-25] MEDS ORDERED: Rocuronium Bromide 50 MG/5 ML Syringe ONE (02:13)
[2020-12-25] MEDS ORDERED: Dexamethasone 4 MG/ML 5 ML MDV ONE (02:13)
[2020-12-25] MEDS ORDERED: Glycopyrrolate 0.2 MG/ML SDV ONE (02:13)
[2020-12-25] MEDS ORDERED: Morphine 10 MG/ML Syringe ONE (03:00)
[2020-12-25] MEDS ORDERED: Sugammadex Sodium 200 MG/2 ML VIAL ONE (03:32)
[2020-12-25] MEDS ORDERED: Desflurane 240 ML Bottle ONE (03:51)
[2020-12-25] MEDS ORDERED: Ketorolac 15 MG/ML SDV IVPUSH ONE (03:59)
--- NOTE | 2020-12-25 04:05 | PCM.POSTAN ---
POST ANESTHESIA ASSESSMENT - MENTAL STATUS Mental Status: Alert, Oriented - VITAL SIGNS Vital Signs: Last Vital Signs Temp 36.1 C 12/24/20 23:56 Pulse 75 12/25/20 01:53 Resp 20 12/25/20 01:53 BP 108/65 12/25/20 01:53 Pulse Ox 100 12/25/20 01:53 - RESPIRATORY Respiratory Status: Respiratory Rate WNL, Airway Patent, O2 Saturation Stable - CARDIOVASCULAR CV Status: Pulse Rate WNL, Blood Pressure Stable - GASTROINTESTINAL GI Status: No Symptoms - PAIN Pain Score: 1 (some soreness, doing well.) - POST OP HYDRATION Hydration Status: Adequate & Stable - OBSERVATIONS Free Text/Narrative:: Doing well, minimal discomfort, no nausea. Adequate for transfer to floor.
--- NOTE | 2020-12-25 04:07 | PCM.OPNOTE ---
- General Post-Op/Procedure Note Date of Surgery/Procedure: 12/25/20 Operative Procedure(s): Diagnostic laparoscopy, evacuation of hemoperitoneum, right salpingectomy Findings: Moderate amount of blood in pelvis. Right fallopian tube dilated along entire length with ectopic protruding through fimbriated end. Normal ovaries, uterus, left fallopian tube Pre Op Diagnosis: 25yo @ 7w3d by LMP. Suspected ruptured ectopic Post-Op Diagnosis: Same Anesthesia Technique: General ET Tube Primary Surgeon: Michaelle Wu Pathology: Right fallopian tube with ectopic Fluid Replacement, Intraop: 1,800 Output, Urine Amount: 400 Complications: None Condition: Stable Free Text/Narrative:: Intake & Output 12/24/20 12/24/20 12/25/20 14:59 22:59 06:59 Output Total 30 Balance -30
[2020-12-25] MEDS ORDERED: Bupivacaine 0.25% 10 ML SDV ONE (04:20)
[2020-12-25] MEDS ORDERED: Acetaminophen/oxyCODONE 325-5 MG Tab PO PRN (04:21)
--- NOTE | 2020-12-25 04:47 | OR ---
SURGEON: Michaelle Wu MD DATE OF PROCEDURE: 12/25/2020 PREOPERATIVE DIAGNOSES: 1. 25-year-old, G1, P0, at 7 weeks and 3 days gestation by last menstrual period. 2. Suspected ruptured ectopic . POSTOPERATIVE DIAGNOSES: 1. 25-year-old, G1, P0, at 7 weeks and 3 days gestation by last menstrual period. 2. Ruptured ectopic . PROCEDURE: Diagnostic laparoscopy, evacuation of hemoperitoneum, and right salpingectomy. PRIMARY SURGEON: Michaelle Wu MD ANESTHESIA: General endotracheal. ESTIMATED BLOOD LOSS: 100 mL. IV FLUIDS: 1800 mL. URINE OUTPUT: Bladder drained prior to procedure. FINDINGS: Anteverted uterus sounded to 10 cm. Moderate amount of hemoperitoneum. Right fallopian tube dilated with ectopic extruding through the fimbriated end, but encompassing the majority of the length of the tube. Normal-appearing left fallopian tube, uterus, and ovary. INDICATIONS: This is a 25-year-old, G1, P0, who presented to the emergency department at 7 weeks and 3 days gestation by last menstrual period with complaints of a syncopal episode. She had been undergoing ovulation induction and had an intrauterine insemination on November 14. The was confirmed. The patient stated that she began having right lower quadrant pain and had a syncopal episode due to the pain and therefore proceeded to the emergency department. Upon presentation, her vital signs were found to be stable with a normal hemoglobin, however, pelvic ultrasound was concerning for ruptured ectopic . The diagnosis was discussed with the patient and the recommendation to proceed with diagnostic laparoscopy, removal of ectopic with possible removal of a fallopian tube and ovary were reviewed with the patient along with the risks, benefits, and alternatives. She voiced understanding of this and agreed to proceed with surgery. DESCRIPTION OF PROCEDURE: The patient was taken to the operating room where general anesthesia was obtained without difficulty. She was placed in dorsal lithotomy position with Yellofin stirrups. She was prepared and draped in normal sterile fashion. A Graves speculum was inserted into the vagina. The anterior lip of the cervix was grasped with an Allis clamp. Uterus sounded to 10 cm. The cervix was sequentially dilated with Hegar dilators to a size 6. The HUMI uterine manipulator was placed. The Allis clamp and speculum were removed. Surgeon's gloves were changed. The infraumbilical fold was infiltrated with 0.25% bupivacaine without epinephrine. A 5 mm incision was made with a scalpel. The abdomen was entered under direct visualization with a 5 mm trocar. Pneumoperitoneum was obtained to a pressure of 15 mmHg. A survey of the pelvis revealed the above finding. A 5 mm port was placed in the right lower quadrant under direct visualization after infiltration with 0.25% bupivacaine. The suction supervisor type disk quality control was used to evacuate the majority of the hemoperitoneum. The left fallopian tube and ovary were noted to be intact. The right fallopian tube was dilated along the majority of the flank forming ectopic with contents protruding from the fimbriated end. At this point, the decision was made to proceed with right salpingectomy. Third port was placed in the left lower quadrant under direct laparoscopic visualization. A 5 mm LigaSure device was used to clamp, coagulate, and transect along the length of the mesosalpinx the fallopian tube from the ovary and uterus. The right lower quadrant 5 mm port was removed and the incision extended to accommodate a 12 mm port. The 12 mm laparoscopic catch bag was introduced. The fallopian tube with ectopic was placed in the catch bag and was removed through the 12 mm port without difficulty. A 12 mm port was reintroduced. The remainder of the hemoperitoneum was evacuated. The right adnexa was inspected and noted to be hemostatic. The 12 mm port was removed and the fascia closed with a suture of 0 Vicryl using the Gabino- Paige. The pneumoperitoneum was released and all instruments were removed from the abdomen. The skin was closed with subcutaneous stitches of 4-0 Monocryl. Incisions were covered with bandages. The Rafa uterine manipulator was removed from the uterus and a sponge stick was used to confirm that there was minimal bleeding. The patient was awakened and taken to recovery room in stable condition. All sponge, lap, and needle counts were correct x2. [id number] / MODL /[id number]
--- NOTE | 2020-12-25 07:05 | PCM48HPAN ---
Post Anesthesia Note - EVALUATION WITHIN 48HRS OF ANESTHETIC Vital Signs in Normal Range: Yes Patient Participated in Evaluation: Yes Respiratory Function Stable: Yes Airway Patent: Yes Cardiovascular Function Stable: Yes Hydration Status Stable: Yes Pain Control Satisfactory: Yes Nausea and Vomiting Control Satisfactory: Yes Mental Status Recovered: Yes Vital Signs: Last Vital Signs Temp 36.2 C 12/25/20 03:46 Pulse 65 12/25/20 04:11 Resp 14 12/25/20 04:11 BP 97/58 L 12/25/20 04:11 Pulse Ox 98 12/25/20 04:11
--- NOTE | 2020-12-25 07:08 | HP ---
DATE OF : 1995 PRIMARY CARE PHYSICIAN: Ashkan Magana M.D. CHIEF COMPLAINT: Syncopal episode. HISTORY OF PRESENT ILLNESS: This is a 25-year-old, G1, P0, at roughly seven weeks by LMP after ovulation induction and intrauterine insemination, who presented with syncopal episode. Earlier this evening, she began experiencing sharp right lower quadrant pain with subsequent nausea and syncope, who presented to the ER due to this pain and syncopal episode. PAST MEDICAL HISTORY: Anxiety. PAST SURGICAL HISTORY: Tonsillectomy, appendectomy, and knee surgery. FAMILY HISTORY: Positive for diabetes and hypertension. SOCIAL HISTORY: Denies tobacco, alcohol, and drug use. PAST GYNECOLOGIC HISTORY: Pap in 2019, LSIL. Denies history of STIs. PAST OBSTETRIC HISTORY: She is currently a G1. She underwent intrauterine insemination on November 14. REVIEW OF SYSTEMS: Negative except as in HPI. ALLERGIES: No known drug allergies. MEDICATIONS: Sertraline 50 mg daily. PHYSICAL EXAMINATION: VITAL SIGNS: Blood pressure 115/79, heart rate 75, respiratory rate 20, SpO2 98%, and temperature 36.1. GENERAL: No apparent distress. CARDIOVASCULAR: Regular rate and rhythm. LUNGS: Clear to auscultation bilaterally. ABDOMEN: Soft. Mildly distended. Nontender to palpation without rebound or guarding. EXTREMITIES: No edema. Nontender to palpation. PELVIC: Deferred. DIAGNOSTIC DATA: Ultrasound: Right adnexal mass along with a moderate amount of pelvic fluid concerning for ruptured ectopic . There is no intrauterine gestational sac identified. Labs: Hemoglobin 12.1, hematocrit 35.4, and platelets 258. CMP normal. HCG 17,029. ASSESSMENT AND PLAN: This is a 25-year-old, 1, para 0, at roughly 7 weeks' gestation by last menstrual period after ovulation induction and intrauterine insemination with a suspected ruptured ectopic . The treatment of ruptured ectopic is removal of the and evacuation of bleeding. It may be the best time to undergo diagnostic laparoscopy with removal of ectopic and possible salpingectomy and/or oophorectomy. Suspect is in the right fallopian tube. However, until surgery we cannot definitively confirm. It is possible that she has the ectopic on the left side and this will require removal of the left fallopian tube. This will not adversely affect future fertility if one fallopian tube is removed. I discussed that intrauterine insemination does increase risk the risk of having an ectopic . We reviewed risks of the surgery including, but not limited to, infection; bleeding with need for transfusion; injury to surrounding organs, vessels, and nerves; anesthesia complications; and . She voiced understanding of the above and agrees to proceed with a diagnostic laparoscopy with removal of ectopic and likely salpingectomy. All questions were answered. [id number] / MODL /[id number]
[2020-12-25] MEDS ORDERED: Acetaminophen 500 MG Tab PO ONE (08:40)
[2020-12-25] MEDS ORDERED: Acetaminophen 500 MG Tab ONE (08:46)
== END 2020-12-25 10:00 | disposition home or self-care (01) ==
LOC: MW.ED 21:21 → MW.SDS 12-25 01:27 → MW.OB 12-25 01:28 → MW.SDS 12-25 10:00
PROVIDERS: ATTEND Obstetrics & Gynecology
DX: O00.101 Right tubal pregnancy without intrauterine pregnancy (principal); Z3A.01 Less than 8 weeks gestation of pregnancy; Z98.890 Other specified postprocedural states; Z90.49 Acquired absence of other specified parts of digestive tract; Z01.812 Encounter for preprocedural laboratory examination; Z20.822 Contact with and (suspected) exposure to COVID-19
CPT/HCPCS: 36415; 59151; 76817; 80053; 81003; 84702; 85025; 85460; 86850; 86900; 86901; 87635; 88305; 93005; 99285; A9270; J0131; J1100; J2250; J2270; J2405; J2704; J2792; J3010; J3490; J7030; 00840; 36430; 99284; J2790; U0002

== ENCOUNTER 2020-12-28 21:25 | Emergency (ER) | payer OTHER ==
[2020-12-28] MEDS ORDERED: Sodium Chloride 0.9% 1,000 ML IV ONE (21:54)
[2020-12-28] MEDS ORDERED: Sodium Chloride 0.9% 10 ML Syringe FLUSH PRN (21:54)
[2020-12-28] MEDS ORDERED: Sodium Chloride 0.9% 2.5 ML Syringe FLUSH PRN (21:54)
--- NOTE | 2020-12-28 22:23 | EDM.PDOC ---
ED HPI GENERAL MEDICAL PROBLEM - General Chief Complaint: INTERNAL AUDIT CONSULTANT Problem Stated Complaint: ECTOPIC WEDNESDAY, HEAVY BLEEDING Time Seen by Provider: 12/28/20 21:55 - History of Present Illness INITIAL COMMENTS - FREE TEXT/NARRATIVE: History of present illness: [] The patient had a procedure 4 days ago for ruptured ectopic . Over the last 24 hours she started to bleed more heavily and she has more pain in her pelvic area. She also has lightheadedness and orthostasis. He has no fever and chills. Review of systems: As per history of present illness and below otherwise all systems reviewed and negative. Past medical history: As per history of present illness and as reviewed below otherwise noncontributory. Surgical history: As per history of present illness and as reviewed below otherwise noncontri butory. Social history: No reported history of drug or alcohol abuse. Family history: As per history of present illness and as reviewed below otherwise noncontributory. Physical exam: Constitutional - well developed, well-nourished and in no acute distress HEENT - normocephalic, no evidence of trauma - external nose and mouth normal - no mass in neck and no JVD - mucosae moist EYES - full EOM, PERRL, no icterus - no evidence of inflammation, injection, or drainage Respiratory - no respiratory distress, equal bilateral expansion GI - abdomen soft without distension or organomegaly - no guard or rebound Musculoskeletal no gross deformity of long bones or joints - no tenderness, swelling or edema Neurologic - Alert and oriented times four - CN II-XII grossly intact - motor sensory and coordination symmetrically normal Psychiatric - appropriate mood and affect with normal thought content Hematologic - No petechiae or purpura - mucosa appropriate color and sclera not pale - normal nail bed color and refill Integument - no rash or evidence of trauma - normal turgor Diagnostics: [] Therapeutics: [] Impression: [] Plan: [] Definitive disposition and diagnosis as appropriate pending reevaluation and review of above. Pelvic Pain Score (Numeric/FACES): 7 - Related Data Allergies Allergy/AdvReac Type Severity Reaction Status Date / Time No Known Allergies Allergy Verified 12/28/20 21:39 Home Meds: Home Meds Docusate Sodium [Colace] 100 mg PO BID PRN #60 cap 12/25/20 [Rx] Ibuprofen 800 mg PO Q8H PRN #40 tablet 12/25/20 [Rx] No122/Iron/Folic Acid [ Multi Tablet] 1 tab PO DAILY 12/25/20 [History] Sertraline [Zoloft] 50 mg PO DAILY 12/25/20 [History] Past Medical History HEENT History: Reports: None Cardiovascular History: Reports: None Respiratory History: Reports: None Gastrointestinal History: Reports: None Genitourinary History: Reports: None INTERNAL AUDIT CONSULTANT History: Reports: None Musculoskeletal History: Reports: None Neurological History: Reports: None Psychiatric History: Reports: None Endocrine/Metabolic History: Reports: None Hematologic History: Reports: None Immunologic History: Reports: None Oncologic (Cancer) History: Reports: None Dermatologic History: Reports: None - Infectious Disease History Infectious Disease History: Reports: None - Past Surgical History Head Surgeries/Procedures: Reports: None HEENT Surgical History: Reports: Tonsillectomy GI Surgical History: Reports: Appendectomy Musculoskeletal Surgical History: Reports: Other (See Below) Other Musculoskeletal Surgeries/Procedures:: knee surgery Social & Family History - Family History Family Medical History: No Pertinent Family History - Caffeine Use Caffeine Use: Reports: Coffee ED ROS GENERAL - Review of Systems Review Of Systems: Comprehensive ROS is negative, except as noted in HPI. ED EXAM, GENERAL - Physical Exam Exam: See Below Free Text/Narrative:: My physical exam is in the HPI Course - Vital Signs Text/Narrative:: 2352 hrs. the patient's not orthostatic and feels better after liter fluids. Hemoglobin is 11 7 and was 12 4 and baseline white count is 12,000 with 13,000 before. Last Recorded V/S: Last Vital Signs Temp 36.4 C 12/28/20 21:33 Pulse 101 H 12/28/20 21:33 Resp 14 12/28/20 21:33 BP 113/80 12/28/20 21:33 Pulse Ox 96 12/28/20 21:33 - Orders/Labs/Meds Orders: Active Orders 24 hr Category Date Time Status Sodium Chloride 0.9% [Saline Flush] Med 12/28/20 21:54 Active 10 ml FLUSH ASDIRECTED PRN Sodium Chloride 0.9% [Saline Flush] Med 12/28/20 21:54 Active 2.5 ml FLUSH ASDIRECTED PRN Saline Lock Insert [OM.PC] Stat Oth 12/28/20 21:54 Ordered Medication Orders Sodium Chloride (Sodium Chloride 0.9% 10 Ml Syringe) 10 ml FLUSH ASDIRECTED PRN PRN Reason: Keep Vein Open Sodium Chloride (Sodium Chloride 0.9% 2.5 Ml Syringe) 2.5 ml FLUSH ASDIRECTED PRN PRN Reason: Keep Vein Open Labs: Laboratory Tests 12/28/20 12/28/20 Range/Units 22:30 22:30 WBC 12.45 H (4.0-11.0) K/uL RBC 3.78 L (4.30-5.90) M/uL Hgb 11.7 L (12.0-16.0) g/dL Hct 34.3 L (36.0-46.0) % MCV 90.7 (80.0-98.0) fL MCH 31.0 (27.0-32.0) pg MCHC 34.1 (31.0-37.0) g/dL RDW Std Deviation 40.8 (28.0-62.0) fl RDW Coeff of Anna 12 (11.0-15.0) % Plt Count 283 (150-400) K/uL MPV 9.10 (7.40-12.00) fL Neut % (Auto) 74.3 (48.0-80.0) % Lymph % (Auto) 16.8 (16.0-40.0) % [place] % (Auto) 4.5 (0.0-15.0) % Eos % (Auto) 4.3 (0.0-7.0) % Baso % (Auto) 0.1 (0.0-1.5) % Neut # (Auto) 9.3 H (1.4-5.7) K/uL Lymph # (Auto) 2.1 (0.6-2.4) K/uL [place] # (Auto) 0.6 (0.0-0.8) K/uL Eos # (Auto) 0.5 (0.0-0.7) K/uL Baso # (Auto) 0.0 (0.0-0.1) K/uL Nucleated RBC % 0.0 /100WBC Nucleated RBCs # 0 K/uL Sodium 144 (136-145) mmol/L Potassium 3.5 (3.5-5.1) mmol/L Chloride 107 (98-107) mmol/L Carbon Dioxide 27.9 (21.0-32.0) mmol/L BUN 13 (7.0-18.0) mg/dL Creatinine 0.7 (0.6-1.0) mg/dL Est Cr Clr Drug Dosing 127.28 mL/min Estimated GFR (MDRD) > 60.0 ml/min Glucose 102 (74-106) mg/dL Calcium 8.7 (8.5-10.1) mg/dL Meds: Medications Generic Name Dose Route Start Last Admin Trade Name Freq PRN Reason Stop Dose Admin Sodium Chloride 10 ml 12/28/20 21:54 Sodium Chloride 0.9% 10 Ml Syringe FLUSH ASDIRECTED PRN Keep Vein Open Sodium Chloride 2.5 ml 12/28/20 21:54 Sodium Chloride 0.9% 2.5 Ml Syringe FLUSH ASDIRECTED PRN Keep Vein Open Discontinued Medications Generic Name Dose Route Start Last Admin Trade Name Freq PRN Reason Stop Dose Admin Sodium Chloride 1,000 mls @ 1,000 mls/hr 12/28/20 21:54 12/28/20 22:32 Normal Saline IV 12/28/20 22:53 1,000 mls/hr .Bolus ONE Administration Departure - Departure Time of Disposition: 23:53 Disposition: Home, Self-Care 01 Condition: Good Clinical Impression: Volume depletion, Dehydration, Pelvic pain - Discharge Information Instructions: Dehydration, Adult, [id number], Pelvic Pain, Female Referrals: Ashkan Magana MD [Primary Care Provider] - Forms: ED Department Discharge Additional Instructions: [facility] - Primary Care [address] [place] [id number] [facility] [address] [place] [id number] The following information is given to patients seen in the emergency department who are being discharged to home. This information is to outline your options for follow-up care. We provide all patients seen in our emergency department with a follow-up referral. The need for follow-up, as well as the timing and circumstances, are variable depending upon the specifics of your emergency department visit. If you don't have a primary care physician on staff, we will provide you with a referral. We always advise you to contact your personal physician following an emergency department visit to inform them of the circumstance of the visit and for follow-up with them and/or the need for any referrals to a consulting specialist. The emergency department will also refer you to a specialist when appropriate. This referral assures that you have the opportunity for follow-up care with a specialist. All of these measure are taken in an effort to provide you with optimal care, which includes your follow-up. Under all circumstances we always encourage you to contact your private physician who remains a resource for coordinating your care. When calling for follow-up care, please make the office aware that this follow-up is from your recent emergency room visit. If for any reason you are refused follow-up, please contact the Emergency Department at and asked to speak to the emergency department charge nurse. Sepsis Event Note (ED) - Evaluation Sepsis Screening Result: No Definite Risk - Focused Exam Vital Signs: Vital Signs Temp Pulse Resp BP Pulse Ox 12/28/20 21:33 36.4 C 101 H 14 113/80 96 - My Orders Last 24 Hours: My Active Orders 12/28/20 21:54 Sodium Chloride 0.9% [Saline Flush] 10 ml FLUSH ASDIRECTED PRN Sodium Chloride 0.9% [Saline Flush] 2.5 ml FLUSH ASDIRECTED PRN Saline Lock Insert [OM.PC] Stat - Assessment/Plan Last 24 Hours: My Active Orders 12/28/20 21:54 Sodium Chloride 0.9% [Saline Flush] 10 ml FLUSH ASDIRECTED PRN Sodium Chloride 0.9% [Saline Flush] 2.5 ml FLUSH ASDIRECTED PRN Saline Lock Insert [OM.PC] Stat
[2020-12-28 22:51] LABS: BLOOD UREA NITROGEN,BUN 13 mg/dL (7.0-18.0); CARBON DIOXIDE,CO2 27.9 mmol/L (21.0-32.0); CHLORIDE,CL 107 mmol/L (98-107); GLUCOSE RANDOM 102 mg/dL (74-106); POTASSIUM,K 3.5 mmol/L (3.5-5.1); SODIUM,NA 144 mmol/L (136-145)
== END 2020-12-29 00:10 | disposition home or self-care (01) ==
LOC: MW.ED 21:25
DX: R10.2 Pelvic and perineal pain (principal); E86.0 Dehydration
CPT/HCPCS: 36415; 80048; 85025; 99284; J7030; 99283

== ENCOUNTER 2022-01-07 10:07 | Inpatient (IN) | payer OTHER ==
[2022-01-07] MEDS ORDERED: Sodium Chloride 0.9% 20 ML SDV IV PRN (11:21)
[2022-01-07] MEDS ORDERED: Misoprostol 200 MCG Tab PO PRN (11:21)
[2022-01-07] MEDS ORDERED: Water For Irrigation,Sterile 1,000 ML Container IRR PRN (11:21)
[2022-01-07] MEDS ORDERED: Sodium Chloride 0.9% 2.5 ML Syringe FLUSH PRN (11:21)
[2022-01-07] MEDS ORDERED: Misoprostol 25 MCG (1/4 of 100 MCG) Tab VAG PRN (11:21)
[2022-01-07] MEDS ORDERED: Lidocaine 1% 50 ML MDV INJECT PRN (11:21)
[2022-01-07] MEDS ORDERED: Terbutaline 1 MG/ML SDV SUBCUT PRN (11:21)
[2022-01-07] MEDS ORDERED: Tranexamic Acid 1,000 MG in Sodium Chloride 0.9% 100 ML IV PRN (11:21)
[2022-01-07] MEDS ORDERED: Carboprost Tromethamine 250 MCG/1 ML Amp IM PRN (11:21)
[2022-01-07] MEDS ORDERED: Sodium Chloride 0.9% 10 ML Syringe FLUSH PRN (11:21)
[2022-01-07] MEDS ORDERED: Methylergonovine 0.2 MG/1 ML Amp IM PRN (11:21)
[2022-01-07] MEDS ORDERED: Oxytocin/0.9 % Sodium Chloride 30 UNIT/500 ML BAG IV SCH ×2 (11:30)
[2022-01-07] MEDS: Lactated Ringers 1,000 ML IV SCH (12:56)
[2022-01-07] MEDS: Misoprostol 25 MCG (1/4 of 100 MCG) Tab VAG PRN ×2 (17:04→22:11)
[2022-01-07] MEDS: Ondansetron 4 MG/2 ML SDV IVPUSH PRN (22:01)
[2022-01-07] MEDS: Butorphanol 1 MG/ML SDV IVPUSH PRN (22:03)
[2022-01-08] MEDS: Lactated Ringers 1,000 ML IV SCH ×2 (03:48→09:17)
[2022-01-08] MEDS: Ondansetron 4 MG/2 ML SDV IVPUSH PRN (03:49)
[2022-01-08] MEDS: Butorphanol 1 MG/ML SDV IVPUSH PRN (04:56)
[2022-01-08] MEDS ORDERED: ePHEDrine 50 MG/ML SDV IVPUSH PRN (09:44)
[2022-01-08] MEDS ORDERED: Ropivacaine/PF 400 MG/200 ML PCA EPIDUR ONE (09:45)
[2022-01-08] MEDS ORDERED: Ropivacaine HCl/PF 400 MG in Premix Bag 1 BAG EPIDUR SCH (09:45)
[2022-01-08] MEDS ORDERED: Methylergonovine 0.2 MG/1 ML Amp IM PRN (14:09)
[2022-01-08] MEDS ORDERED: Tranexamic Acid 1,000 MG in Sodium Chloride 0.9% 100 ML IV PRN (14:09)
[2022-01-08] MEDS ORDERED: Ibuprofen 400 MG Tab PO PRN (14:09)
[2022-01-08] MEDS ORDERED: Lanolin 100% Cream 7 GM Tube TOP PRN (14:09)
[2022-01-08] MEDS ORDERED: Ibuprofen 800 MG Tab PO PRN (14:09)
[2022-01-08] MEDS ORDERED: Benzocaine/Menthol 20%-0.5% Spray 78 GM Cannister TOP PRN (14:09)
[2022-01-08] MEDS ORDERED: Bisacodyl 10 MG Supp RECTAL PRN (14:09)
[2022-01-08] MEDS ORDERED: Acetaminophen 500 MG Tab PO PRN (14:09)
[2022-01-08] MEDS ORDERED: Witch Hazel Medicated Pads 40/Jar TOP PRN (14:09)
[2022-01-08] MEDS ORDERED: Docusate Sodium 100 MG Cap PO PRN (14:11)
[2022-01-08] MEDS: Acetaminophen 500 MG Tab PO PRN (15:14)
[2022-01-09] MEDS: Acetaminophen 500 MG Tab PO PRN ×3 (02:27→17:12)
[2022-01-09] MEDS: Prenatal Multivitamin with Calcium/Folic Acid/Iron Tab PO SCH (09:18)
[2022-01-09] MEDS: Sertraline 50 MG Tab PO SCH (09:18)
[2022-01-09] MEDS: Docusate Sodium 100 MG Cap PO PRN (12:26)
[2022-01-10] MEDS: Acetaminophen 500 MG Tab PO PRN (07:24)
[2022-01-10] MEDS: Docusate Sodium 100 MG Cap PO PRN (08:12)
[2022-01-10] MEDS: Prenatal Multivitamin with Calcium/Folic Acid/Iron Tab PO SCH (09:05)
[2022-01-10] MEDS: Sertraline 50 MG Tab PO SCH (09:05)
== END 2022-01-10 12:00 | disposition home or self-care (01) | DRG 807 ==
LOC: MW.OBCHECK 10:07 → MW.OB 11:21 → OBSVTOIN 01-08 13:39 → MW.OB 01-08 18:58
PROVIDERS: ADMIT Obstetrics & Gynecology; ATTEND Obstetrics & Gynecology
PROC: 10E0XZZ Delivery of Products of Conception, External Approach (ICD-10-PCS; principal; 2022-01-08)
PROC: 0KQM0ZZ Repair Perineum Muscle, Open Approach (ICD-10-PCS; 2022-01-08)
PROC: 10907ZC Drainage of Amniotic Fluid, Therapeutic from Products of Conception, Via Natural or Artificial Opening (ICD-10-PCS; 2022-01-08)
PROC: 3E0R3BZ Introduction of Anesthetic Agent into Spinal Canal, Percutaneous Approach (ICD-10-PCS; 2022-01-08)
PROC: 3E033VJ Introduction of Other Hormone into Peripheral Vein, Percutaneous Approach (ICD-10-PCS; 2022-01-08)
PROC: 3E0P7VZ Introduction of Hormone into Female Reproductive, Via Natural or Artificial Opening (ICD-10-PCS; 2022-01-08)
DX: O36.8330 Maternal care for abnormalities of the fetal heart rate or rhythm, third trimester, not applicable or unspecified (principal); Z37.0 Single live birth; O70.1 Second degree perineal laceration during delivery; Z3A.38 38 weeks gestation of pregnancy; Z20.822 Contact with and (suspected) exposure to COVID-19
CPT/HCPCS: 36415; 51702; 59025; 59409; 82803; 85014; 85018; 85027; 86592; 86850; 86900; 86901; A9270-GY; J0595; J2405; J2590; J2795; J7120; U0002

== ENCOUNTER 2023-07-15 05:07 | Inpatient (IN) | payer OTHER ==
[2023-07-15] MEDS ORDERED: Water For Irrigation,Sterile 1,000 ML Container IRR PRN (05:30)
[2023-07-15] MEDS ORDERED: Terbutaline 1 MG/ML SDV SUBCUT PRN (05:30)
[2023-07-15] MEDS ORDERED: Sodium Chloride 0.9% 20 ML SDV IV PRN (05:30)
[2023-07-15] MEDS ORDERED: Misoprostol 200 MCG Tab PO PRN (05:30)
[2023-07-15] MEDS ORDERED: Sodium Chloride 0.9% 10 ML Syringe FLUSH PRN (05:30)
[2023-07-15] MEDS ORDERED: Tranexamic Acid IN NACL,ISO-OS 1,000 MG in Premix Bag 1 BAG IV PRN ×2 (05:30)
[2023-07-15] MEDS ORDERED: Sodium Chloride 0.9% 2.5 ML Syringe FLUSH PRN (05:30)
[2023-07-15] MEDS ORDERED: Nalbuphine 10 MG/0.5 ML Syringe IVPUSH PRN (05:30)
[2023-07-15] MEDS ORDERED: Methylergonovine 0.2 MG/1 ML Amp IM PRN (05:30)
[2023-07-15] MEDS ORDERED: Oxytocin/0.9 % Sodium Chloride 30 UNIT/500 ML BAG IV SCH ×2 (05:30)
[2023-07-15] MEDS ORDERED: Carboprost Tromethamine 250 MCG/1 mL Vial IM PRN (05:30)
[2023-07-15] MEDS ORDERED: Lidocaine 1% 50 ML MDV INJECT PRN (05:30)
[2023-07-15] MEDS ORDERED: Ondansetron 4 MG/2 ML SDV IVPUSH PRN (05:36)
[2023-07-15] MEDS: Lactated Ringers 1,000 ML IV SCH ×2 (06:00→13:45)
[2023-07-15 06:17] LABS: HEMOGLOBIN 11.5 g/dL (12.0-16.0); MEAN CORPUSCULAR HEMOGLOBIN 27.2 pg (28.0-32.0); MEAN CORPUSCULAR HGB CONC 33.8 g/dL (32.0-36.0); MEAN CORPUSCULAR VOLUME 80.4 fL (83.0-99.0); MEAN PLATELET VOLUME 11.6 fL (9.4-12.3); PLATELET COUNT,PLT 211 K/uL (150-400); RED BLOOD CELL COUNT 4.23 M/uL (4.10-5.30); WHITE BLOOD CELL COUNT,WBC 11.47 K/uL (3.9-11.3)
[2023-07-15] MEDS ORDERED: ePHEDrine 50 MG/ML SDV IVPUSH PRN ×2 (07:55)
[2023-07-15] MEDS ORDERED: Ropivacaine HCl/PF 400 MG in Premix Bag 1 BAG EPIDUR SCH (08:00)
[2023-07-15] MEDS ORDERED: dexmedeTOMIDine HCl 200 MCG/2 ML SDV ONE (15:10)
[2023-07-15] MEDS: Phenylephrine HCl 0.5 MG/5 ML AMP IVPUSH PRN ×4 (15:15→16:34)
[2023-07-15] MEDS ORDERED: Docusate Sodium 100 MG Cap PO PRN (19:13)
[2023-07-15] MEDS ORDERED: Witch Hazel Medicated Pads 40/Jar TOP PRN (19:13)
[2023-07-15] MEDS ORDERED: Hydrocortisone 2.5% Crm 30 GM Tube TOP PRN (19:13)
[2023-07-15] MEDS ORDERED: oxyCODONE 5 MG Tab PO PRN (19:13)
[2023-07-15] MEDS ORDERED: Lanolin 100% Cream 7 GM Tube TOP PRN (19:13)
[2023-07-15] MEDS ORDERED: Benzocaine/Menthol 20%-0.5% Spray 78 GM Cannister TOP PRN (19:13)
[2023-07-15 19:57] LABS: PH,UMBILICAL ARTERIAL 7.078 (7.18-7.38); PH,UMBILICAL VENOUS 7.234 (7.25-7.45)
[2023-07-15] MEDS: Ibuprofen 800 MG Tab PO PRN (21:00)
[2023-07-15] MEDS: Acetaminophen 500 MG Tab PO PRN (21:01)
[2023-07-16 06:03] LABS: HEMATOCRIT 30.8 % (37.0-47.0); HEMOGLOBIN 10.6 g/dL (12.0-16.0)
[2023-07-16] MEDS: Ibuprofen 800 MG Tab PO PRN (14:57)
[2023-07-16] MEDS: Acetaminophen 500 MG Tab PO PRN (17:59)
[2023-07-17] MEDS: Acetaminophen 500 MG Tab PO PRN ×2 (04:15→08:48)
== END 2023-07-17 11:00 | disposition home or self-care (01) | DRG 807 ==
LOC: UNDOADMOB 05:07 → MW.OB 05:07 → OBSVTOIN 18:42 → MW.OB 18:42
PROVIDERS: ADMIT Obstetrics & Gynecology; ATTEND Obstetrics & Gynecology
PROC: 10E0XZZ Delivery of Products of Conception, External Approach (ICD-10-PCS; principal; 2023-07-15)
PROC: 0KQM0ZZ Repair Perineum Muscle, Open Approach (ICD-10-PCS; 2023-07-15)
PROC: 3E0R3BZ Introduction of Anesthetic Agent into Spinal Canal, Percutaneous Approach (ICD-10-PCS; 2023-07-15)
PROC: 00HU33Z Insertion of Infusion Device into Spinal Canal, Percutaneous Approach (ICD-10-PCS; 2023-07-15)
DX: O66.0 Obstructed labor due to shoulder dystocia (principal); Z37.0 Single live birth; O70.1 Second degree perineal laceration during delivery; Z3A.38 38 weeks gestation of pregnancy
CPT/HCPCS: 36415; 51702; 59025; 59409; 82803; 82947; 85014; 85018; 85027; 86592; 86850; 86900; 86901; A9270-GY; J2371; J2590; J2795; J3490; J7120

== ENCOUNTER 2024-08-04 18:14 | Emergency (ER) | payer OTHER ==
[2024-08-04] MEDS: Morphine 10 MG/ML SDV IM STA (18:28)
[2024-08-04] MEDS: Ondansetron 4 MG Tab.DIS PO STA (18:28)
[2024-08-04] MEDS: Acetaminophen 500 MG Tab PO STA (19:31)
[2024-08-04] MEDS: oxyCODONE 5 MG Tab PO STA ×2 (19:32→22:36)
[2024-08-04] MEDS: Ibuprofen 800 MG Tab PO STA (19:32)
[2024-08-04] MEDS: Propofol 200 MG/20 ML SDV IVPUSH ONE ×2 (22:06)
[2024-08-04] MEDS: Propofol 200 MG/20 ML SDV ONE (22:29)
== END 2024-08-04 22:43 | disposition home or self-care (01) ==
LOC: MW.ED 18:14
DX: S82.51XA Displaced fracture of medial malleolus of right tibia, initial encounter for closed fracture (principal); S82.451A Displaced comminuted fracture of shaft of right fibula, initial encounter for closed fracture; S93.04XA Dislocation of right ankle joint, initial encounter; J45.909 Unspecified asthma, uncomplicated; Z86.16 Personal history of COVID-19; Z90.49 Acquired absence of other specified parts of digestive tract; Z79.82 Long term (current) use of aspirin; Z79.899 Other long term (current) drug therapy; Z75.8 Other problems related to medical facilities and other health care; W00.0XXA Fall on same level due to ice and snow, initial encounter
CPT/HCPCS: 27810; 73562; 73590; 73600; 73610; 73630; 96372; 99152; 99153; 99283; A9270; J2272; J2704

== ENCOUNTER 2024-08-05 16:50 | Observation (INO) | payer OTHER ==
[2024-08-05] MEDS: Ondansetron 4 MG Tab.DIS PO STA (19:09)
[2024-08-05] MEDS: HYDROmorphone 2 MG Tab PO STA (19:13)
[2024-08-05] MEDS ORDERED: Sodium Chloride 0.9% 10 ML Syringe FLUSH PRN (19:32)
[2024-08-05] MEDS ORDERED: Sodium Chloride 0.9% 2.5 ML Syringe FLUSH PRN (19:32)
[2024-08-05] MEDS ORDERED: Ibuprofen 400 MG Tab PO PRN (19:52)
[2024-08-05] MEDS ORDERED: Melatonin 3 MG Tab PO PRN (19:52)
[2024-08-05] MEDS ORDERED: Acetaminophen 650 MG Supp RECTAL PRN (19:52)
[2024-08-05] MEDS ORDERED: Polyethylene Glycol 3350 Powder 17 GM Packet PO PRN (19:52)
[2024-08-05] MEDS ORDERED: Ondansetron 4 MG/2 ML SDV IVPUSH PRN (19:52)
[2024-08-05] MEDS ORDERED: Acetaminophen 325 MG Tab PO PRN (19:52)
[2024-08-05 19:53] LABS: BASOPHILS ABSOLUTE AUTO 0.02 K/uL (0.00-0.20); BASOPHILS PERCENT AUTO 0.2 % (0.0-1.0); EOSINOPHILS ABSOLUTE AUTO 0.31 K/uL (0.00-0.45); EOSINOPHILS PERCENT AUTO 3.7 % (0.0-6.0); HEMOGLOBIN 12.7 g/dL (12.0-16.0); IMMATURE GRAN ABSOLUTE AUTO 0.03 K/uL (0.00-0.05); IMMATURE GRAN PERCENT AUTO 0.4 % (0.0-0.4); LYMPHOCYTES ABSOLUTE AUTO 1.45 K/uL (1.00-4.80); LYMPHOCYTES PERCENT AUTO 17.3 % (24.0-44.0); MEAN CORPUSCULAR HEMOGLOBIN 27.2 pg (28.0-32.0); MEAN CORPUSCULAR HGB CONC 32.6 g/dL (32.0-36.0); MEAN CORPUSCULAR VOLUME 83.5 fL (83.0-99.0); MEAN PLATELET VOLUME 8.7 fL (9.4-12.3); MONOCYTES PERCENT AUTO 4.8 % (0.0-8.0); NEUTROPHILS ABSOLUTE AUTO 6.15 K/uL (1.80-7.70); NEUTROPHILS PERCENT AUTO 73.6 % (41.0-71.0); PLATELET COUNT,PLT 265 K/uL (150-400); RED BLOOD CELL COUNT 4.67 M/uL (4.10-5.30); WHITE BLOOD CELL COUNT,WBC 8.36 K/uL (3.9-11.3)
[2024-08-05] MEDS ORDERED: Naloxone 0.4 MG/ML SDV IVPUSH PRN (21:32)
[2024-08-05] MEDS ORDERED: oxyCODONE 5 MG Tab PO PRN (21:32)
[2024-08-05] MEDS: Morphine 2 MG/ML SYRINGE IVPUSH PRN (21:48)
[2024-08-05 23:27] LABS: ALBUMIN 3.5 g/dL (3.4-5.0); BILIRUBIN TOTAL 0.5 mg/dL (0.2-1.0); CALCIUM 8.9 mg/dL (8.5-10.1); CARBON DIOXIDE,CO2 27.1 mmol/L (21.0-32.0); CREATININE 0.8 mg/dL (0.6-1.0); EST CRCL DRUG DOSING (CG) 107.46 mL/min; POTASSIUM,K 3.8 mmol/L (3.5-5.1); PROTEIN TOTAL,TP 7.1 g/dL (6.4-8.2)
[2024-08-06 06:09] LABS: BASOPHILS ABSOLUTE AUTO 0.02 K/uL (0.00-0.20); BASOPHILS PERCENT AUTO 0.3 % (0.0-1.0); EOSINOPHILS ABSOLUTE AUTO 0.36 K/uL (0.00-0.45); EOSINOPHILS PERCENT AUTO 5.5 % (0.0-6.0); HEMATOCRIT 38.1 % (37.0-47.0); HEMOGLOBIN 11.8 g/dL (12.0-16.0); IMMATURE GRAN ABSOLUTE AUTO 0.03 K/uL (0.00-0.05); IMMATURE GRAN PERCENT AUTO 0.5 % (0.0-0.4); LYMPHOCYTES ABSOLUTE AUTO 1.83 K/uL (1.00-4.80); MEAN CORPUSCULAR HEMOGLOBIN 26.2 pg (28.0-32.0); MEAN CORPUSCULAR VOLUME 84.5 fL (83.0-99.0); MEAN PLATELET VOLUME 9.4 fL (9.4-12.3); MONOCYTES ABSOLUTE AUTO 0.52 K/uL (0.00-0.80); NEUTROPHILS ABSOLUTE AUTO 3.78 K/uL (1.80-7.70); NEUTROPHILS PERCENT AUTO 57.7 % (41.0-71.0); PLATELET COUNT,PLT 260 K/uL (150-400); RED BLOOD CELL COUNT 4.51 M/uL (4.10-5.30); WHITE BLOOD CELL COUNT,WBC 6.54 K/uL (3.9-11.3)
[2024-08-06] MEDS ORDERED: Ropivacaine 0.5% 5 MG/ML 30 ML SDV ONE (09:16)
[2024-08-06] MEDS ORDERED: propofoL 1,000 MG/100 ML 100 ML ONE (09:16)
[2024-08-06] MEDS ORDERED: dexmedeTOMIDine HCl 200 MCG/2 ML SDV ONE (09:20)
[2024-08-06] MEDS ORDERED: fentaNYL 100 MCG/2 ML SDV ONE (09:20)
[2024-08-06] MEDS ORDERED: Propofol 200 MG/20 ML SDV ONE ×2 (09:20→12:29)
[2024-08-06] MEDS ORDERED: Rocuronium Bromide 50 MG/5 ML Syringe ONE (09:21)
[2024-08-06] MEDS ORDERED: Sodium Chloride 0.9% 20 ML ONE (09:21)
[2024-08-06] MEDS ORDERED: Ketamine HCL/NACL, ISO-OSM 50 MG/5 ML Syringe ONE ×2 (09:25→11:23)
[2024-08-06] MEDS ORDERED: Bupivacaine 0.25% 30 ML SDV ONE (09:34)
[2024-08-06] MEDS ORDERED: Lidocaine 2% 5 ML SDV ONE (09:35)
[2024-08-06] MEDS: Morphine 4 MG/ML Syringe IVPUSH PRN (09:49)
[2024-08-06] MEDS ORDERED: ceFAZolin 2 GM Vial ONE (10:33)
[2024-08-06] MEDS ORDERED: Ondansetron 4 MG/2 ML SDV ONE (10:48)
[2024-08-06] MEDS ORDERED: Dexamethasone 4 MG/ML 5 ML MDV ONE (10:48)
[2024-08-06] MEDS ORDERED: propofoL 500 MG/50 ML 50 ML ONE ×2 (11:06→11:50)
[2024-08-06] MEDS ORDERED: Ketorolac 30 MG/ML SDV ONE (12:00)
[2024-08-06] MEDS ORDERED: Sugammadex Sodium 200 MG/2 ML VIAL IV ONE (12:00)
[2024-08-06] MEDS ORDERED: oxyCODONE 5 MG Tab PO PRN (13:48)
[2024-08-06] MEDS: Ketorolac 30 MG/ML SDV IVPUSH SCH (16:16)
[2024-08-06] MEDS: Acetaminophen 325 MG Tab PO SCH (16:37)
[2024-08-06] MEDS: Aspirin 325 MG Tab.EC PO SCH (16:37)
[2024-08-06] MEDS: ceFAZolin 2 GM in Sodium Chloride 0.9% 50 ML IV SCH (16:59)
== END 2024-08-07 13:05 | disposition home or self-care (01) ==
LOC: MW.ED 16:50 → MW.MS 19:32
PROVIDERS: ADMIT Family Medicine; ATTEND Family Medicine
DX: S82.851A Displaced trimalleolar fracture of right lower leg, initial encounter for closed fracture (principal); S93.431A Sprain of tibiofibular ligament of right ankle, initial encounter; R26.2 Difficulty in walking, not elsewhere classified; Z79.82 Long term (current) use of aspirin; Z79.899 Other long term (current) drug therapy; W01.0XXA Fall on same level from slipping, tripping and stumbling without subsequent striking against object, initial encounter
CPT/HCPCS: 27822; 27829; 36415; 64450; 73600; 76000; 80053; 84703; 85025; 96365; 96375; 96376; 97116; 97161; 99284; A9270; C1713; G0378; J0131; J0665; J0690; J1100; J1885; J2270; J2405; J2704; J2795; J3010; J3490; 01480; 99222; 99232; 99238; 99283

== ENCOUNTER 2024-08-18 10:39 | Day surgery (SDC) | payer OTHER ==
[~2024-08-18 10:39] MED LIST: Albuterol 0.083% 2.5 MG/3 ML Neb Soln NEB PRN; Metoclopramide 10 MG/2 ML SDV IVPUSH PRN; Morphine 2 MG/ML SYRINGE IVPUSH PRN; Naloxone 0.4 MG/ML SDV IVPUSH PRN; Phenylephrine HCl In 0.9% NaCl 1 MG/10 ML Syringe IVPUSH PRN; ceFAZolin 2 GM in Sodium Chloride 0.9% 50 ML IV ONE; fentaNYL 50 MCG/ML SDV IVPUSH PRN
[2024-08-18] MEDS ORDERED: EPINEPHrine 1 MG/1 ML Amp ONE (11:08)
[2024-08-18] MEDS ORDERED: fentaNYL 100 MCG/2 ML SDV ONE (11:08)
[2024-08-18] MEDS ORDERED: propofoL 500 MG/50 ML 50 ML ONE (11:08)
[2024-08-18] MEDS ORDERED: Ketamine 500 mg/10 ML MDV ONE (11:11)
[2024-08-18] MEDS ORDERED: Sodium Chloride 0.9% 20 ML ONE (11:15)
[2024-08-18] MEDS ORDERED: Bupivacaine 0.25% 30 ML SDV ONE (11:20)
[2024-08-18] MEDS: Lactated Ringers 1,000 ML IV SCH (11:35)
[2024-08-18] MEDS ORDERED: ceFAZolin 2 GM Vial ONE (12:12)
[2024-08-18] MEDS ORDERED: Dexamethasone 4 MG/ML 5 ML MDV ONE (12:16)
[2024-08-18] MEDS ORDERED: Ketorolac 30 MG/ML SDV ONE (12:16)
[2024-08-18] MEDS ORDERED: Ondansetron 4 MG/2 ML SDV ONE (12:16)
[2024-08-18] MEDS: HYDROmorphone 1 MG/ML Syringe IVPUSH PRN (13:32)
[2024-08-18] MEDS: Ondansetron 4 MG/2 ML SDV IVPUSH PRN (14:05)
[2024-08-18] MEDS: droPERidol 5 MG/2 ML SDV IV ONE (15:34)
== END 2024-08-18 16:15 | disposition home or self-care (01) ==
LOC: MW.SDS 10:39
PROVIDERS: ATTEND Orthopaedic Surgery
DX: S82.851A Displaced trimalleolar fracture of right lower leg, initial encounter for closed fracture (principal); S93.431A Sprain of tibiofibular ligament of right ankle, initial encounter; E66.9 Obesity, unspecified; Z79.82 Long term (current) use of aspirin; Z79.899 Other long term (current) drug therapy; Z68.32 Body mass index [BMI] 32.0-32.9, adult
CPT/HCPCS: 27766; 76000; 81025; C1769; J0131; J0171; J0665; J0690; J1100; J1171; J1790; J1885; J2405; J2704; J3010; J3490; J7120; 01480